=== PATIENT | female | born 1950 | race Caucasian/White ===

== ENCOUNTER → 2017-10-31 06:56 | Outpatient (CLI) | payer BC, SELFPAY ==
--- NOTE | 2017-10-31 06:46 | BI_ITS ---
MAMMOGRAPHY - BILATERAL SCREENING REASON FOR EXAM: Female, 66 years old. Routine annual screening examination. PERTINENT HISTORY: FAM HX MOTHER AGE 52, MAT AUNT AGE 60S LOST 17# BILAT REDUCTION 2010 TECHNIQUE: Digital bilateral breast ro (3D mammographic acquisition) in the CC and MLO projections. 2-D mediolateral oblique (MLO) and craniocaudad (CC) views of both breasts were obtained. CAD: Full Field Digital Mammography with Computer Added Detection was performed. COMPARISON: None. FINDINGS: Breast Composition: The breasts are heterogeneously dense, which may obscure small masses. There are no dominant masses or suspicious calcifications. No other significant abnormalities are identified. BI/SCREENING MAMM (CAD), BILAT IMPRESSION: Stable bilateral screening mammogram. Yearly follow-up mammogram recommended. (A) ASSESSMENT CATEGORY: BIRADS Category 2: Benign. A letter regarding these results will be sent to the patient by the facility within 30 days. Approximately 10% of breast cancers are not detected by mammography. A normal mammogram should not delay biopsy of a clinically suspicious abnormality. [id number] Electronically Signed: Holland Lu MD at 10:42 EDT Tel , Service support ,
--- NOTE | 2017-10-31 06:56 | DT_ITS ---
This patient was seen during an EMR downtime October 24, 2017 - October 31, 2017. This patient may have a combination of paper and electronic documentation or all paper documentation. All documentation is viewable within the e-chart portion of [facility] for each patient visit.
== END ==
PROVIDERS: Family Provider Internal Medicine; PCP Internal Medicine; Visit Provider Internal Medicine
DX: Z12.31 Encounter for screening mammogram for malignant neoplasm of breast (principal)
CPT/HCPCS: 77063; 77067

== ENCOUNTER → 2019-04-26 14:28 | Outpatient (CLI) | payer BC, SELFPAY ==
--- NOTE | 2019-04-26 14:32 | BI_ITS ---
MAMMOGRAPHY - BILATERAL SCREENING REASON FOR EXAM: Female, 68 years old. Routine annual screening examination. PERTINENT HISTORY: Mother with breast cancer. Aunt with breast cancer. History of prior bilateral breast reduction surgery. TECHNIQUE: Digital bilateral breast kenzie (3D mammographic acquisition) in the CC and MLO projections. 2-D mediolateral oblique (MLO) and craniocaudad (CC) views of both breasts were obtained. CAD: Full Field Digital Mammography with Computer Added Detection was performed. COMPARISON: Comparison is made with prior study dated October 31, 2017 and October 26, 2016. FINDINGS: Breast Composition: There are scattered areas of fibroglandular density. There are no dominant masses or suspicious calcifications. No other significant abnormalities are identified. There has been no significant change since the prior study. BI/SCREEN MAMM (CAD) W/KENZIE BILAT IMPRESSION: Stable bilateral screening mammogram. Yearly follow-up mammogram recommended. (A) ASSESSMENT CATEGORY: BIRADS Category 1: Negative. A letter regarding these results will be sent to the patient by the facility within 30 days. Approximately 10% of breast cancers are not detected by mammography. A normal mammogram should not delay biopsy of a clinically suspicious abnormality. [id number] Electronically Signed: Faraz Betancourt, at 15:53 EST , Service support ,
--- NOTE | 2019-04-26 14:34 | BD_ITS ---
STUDY: DUAL ENERGY X-RAY ABSORPTIOMETRY / DXA REASON FOR EXAM: Female, 68 years old. The patient is postmenopausal. Loss of height. TECHNIQUE: Bone Mineral Density (BMD) measurements of lumbar spine and bilateral hips were obtained. COMPARISON: Comparison is made with prior study dated October 26, 2016. FINDINGS: Lumbar Spine (L1-L4): g/cm2 (1.102) / T-score (-0.5) / Z-score (1.1) Findings are suggestive of normal bone density with a low fracture risk. Left Femur Total: g/cm2 (0.930) / T-score (0.6) / Z-score (0.7) Left Femoral Neck: g/cm2 (0.983) / T-score (0.4) / Z-score (1.2) Right Femur Total: g/cm2 (0.960) / T-score (-0.4) / Z-score (0.9) Right Femoral Neck: g/cm2 (1.092) / T-score (0.4) / Z-score (2.0) The T-Scores on the most recent prior examination were: Lumbar Spine (L1-L4): There has been worsening of bone density since the previous examination. Left Femur Total: which represents a worsening of 4.3%. Right Femur Total: which represents a worsening of 3.2%. BD/Dexa Bone Density Study IMPRESSION: The patient is considered normal as outlined below according to World [employer]fra[employer] Organization (WHO) criteria with a low fracture risk. There has been worsening of bone density since the previous examination. Reference Information: The T-score is the number of standard deviations above or below the standard which is normal for young adults at their peak bone mineral density. The World Health Organization (WHO) interprets the T-scores as follows: Above -1 Normal bone density Between -1 and -2.5 Osteopenia Equal to / or below -2.5 Osteoporosis As a practical clinical guideline, osteopenia may be graded as follows: Mild -1 through -1.5 Moderate -1.6 through -2.0 Severe -2.1 through -2.4 The Z-score is the number of standard deviations above or below age-matched controls. A Z-score of less than -1.5 would be considered abnormal. References: 1. NIH Osteoporosis and Related Bone Diseases http://www.osteo.org 2. International Society for Clinical Densitometry http://www.iscd.org 3. National Osteoporosis Foundation http://www.nof.org Electronically Signed: Faraz Betancourt, at 15:28 EST , Service support ,
== END ==
PROVIDERS: Family Provider Nurse Practitioner; PCP Nurse Practitioner; Referring Provider Internal Medicine; Visit Provider Internal Medicine
DX: Z78.0 Asymptomatic menopausal state (principal); Z12.31 Encounter for screening mammogram for malignant neoplasm of breast; Z80.3 Family history of malignant neoplasm of breast
CPT/HCPCS: 77063; 77067; 77080

== ENCOUNTER → 2019-06-20 14:24 | Outpatient (CLI) | payer SELFPAY ==
--- NOTE | 2019-06-20 14:32 | CT_ITS ---
STUDY: CARDIAC CALCIUM SCORING - CT CHEST REASON FOR EXAM: Female, 68 years old. HYPERCHOLESTEREMIA RADIATION DOSAGE (If Supplied By Facility): CTDIvol = ( 12.19 ) mGy, DLP = ( 195.04 ) mGycm TECHNIQUE: Axial non-enhanced images were acquired through the heart for the sole purpose of measuring coronary artery calcium. Individualized dose optimization techniques were used for this CT. COMPARISON: None. FINDINGS: Visualized surrounding anatomy: Normal. Please see the patient''s medical record for a personalized calcium score. CT/Limited Chest CT w/CCTA IMPRESSION: Please see the patient''s medical record for a personalized calcium score. Please go to: [email or web address] , for a description of the calculator. Electronically Signed: Humberto Camarena, at 17:13 EST Tel , Service support ,
[2019-06-20 14:38] VITALS: BP 179/81; PULSE 64; RESP 16; O2SAT 99; BMI 28.7
--- NOTE | 2019-06-20 15:18 | CCTA_ITS ---
Calcium Scoring Date of Study:: 06/20/19 Coronary Calcium Scoring: High-resolution Computed Tomographic imaging of the chest was performed on [06/20/2019], with particular attention paid to the coronary arteries. Images from the examination were analyzed for the presence and extent of coronary artery calcification , using coronary calcium quantification software. The patient tolerated the procedure well and there were no complications. The results of the coronary calcification analysis are provided below. - Findings Left Main (LM): 0 Left Anterior Descending (LAD): 28.9 Left Circumflex (LCX): 2.15 Right Coronary Artery (RCA): 0.77 Total Agatston Score: 31.82 Percentile Ranking: Between 50% and 75%. Calcium Scoring Interpretation: 0 No identifiable atherosclerotic plaque. Very low cardiovascular disease risk. <5% chance of presence coronary artery disease A Negative Examination 1-10 Minimal Plaque burden. Significant coronary artery disease very unlikely. 11-100 Mild plaque burden. Likely mild or minimal coronary atherosclerosis. 101-400 Moderate plaque burden Moderate non-obstructive coronary artery disease highly likely. Over 400 Extensive plaque burden. High likelihood of at least one significant coronary stenosis (>50% diameter) Conclusion: The total calcium score (31.8) is between the 50th and 75th percentile for women between the ages of 65 and 69. (Exact percentile calculated to be 51%; this means 50% of the population has a lower calcium score and 49% of the population is a higher calcium score than this patient.) A full evaluation of cardiac risk should include an assessment of all co nventional risk factors, and the scores and percentile rankings reported herein should be evaluated in this context.
== END ==
PROVIDERS: PCP Internal Medicine; Referring Provider Internal Medicine; Visit Provider Internal Medicine
DX: E78.00 Pure hypercholesterolemia, unspecified (principal)
CPT/HCPCS: 75571; 76380

== ENCOUNTER → 2020-05-28 11:41 | Outpatient (CLI) | payer MEDICARE, OTHER, SELFPAY ==
[2019-06-20 14:38] VITALS: BMI 28.7
--- NOTE | 2020-05-28 12:00 | RAD_ITS ---
HISTORY: LBP RADIATES INTO BILAT HIPS X3 MONTHS, PAIN DURING WALKING, NKI ADDITIONAL HISTORY: None provided. EXAMINATION/TECHNIQUE: XR Spine Lumbar 2 or 3 Views Number of images including paperwork: 3 COMPARISON: None FINDINGS: VERTEBRAE: No acute fracture. VERTEBRAL ALIGNMENT: No traumatic subluxation. DISKS AND JOINTS: Moderate to severe multilevel discogenic degenerative changes. Facet arthropathy. Degenerative changes of the sacroiliac joints. Right hip degenerative changes partially visible. SOFT TISSUES: Unremarkable paraspinous soft tissues. RAD/Lumbar Spine 2 or 3 Views IMPRESSION: No acute findings. Lumbar spondylosis. Severe degenerative changes right hip. at 0233 Reported and signed by: Lesly Buenrostro MD Electronically Signed: Lesly Buenrostro MD at 2:33 EST Tel , Service support ,
--- NOTE | 2020-05-28 12:00 | RAD_ITS ---
HISTORY: LBP RADIATES INTO BILAT HIPS X3 MONTHS, PAIN DURING WALKING, NKI ADDITIONAL HISTORY: None provided. EXAMINATION/TECHNIQUE: XR Hips Bilateral with Pelvis when performed; 2 Views Bilateral Number of images including paperwork: 5 COMPARISON: 10/26/2016 FINDINGS: BONES: No acute fracture. JOINTS: No subluxation. Joint space narrowing and osteophyte formation is noted involving the hips bilaterally with some subchondral sclerosis also noted on the right. Degenerative changes in the visible spine. SOFT TISSUES: No distinct foreign body. RAD/Hips B/L min 2 views w/ Pelvis IMPRESSION: No acute osseous abnormality. Severe right and moderate left hip degenerative changes. at 2357 Reported and signed by: Lesly Buenrostro MD Electronically Signed: Lesly Buenrostro MD at 23:57 EST Tel , Service support ,
== END ==
PROVIDERS: PCP Internal Medicine; Referring Provider Anesthesiology Pain Medicine; Visit Provider Anesthesiology Pain Medicine
DX: M54.9 Dorsalgia, unspecified (principal)
CPT/HCPCS: 72100; 73521

== ENCOUNTER → 2020-06-11 07:31 | Outpatient (CLI) | payer MEDICARE, OTHER, SELFPAY ==
[2019-06-20 14:38] VITALS: BMI 28.7
--- NOTE | 2020-06-11 07:35 | BI_ITS ---
MAMMOGRAPHY - BILATERAL SCREENING REASON FOR EXAM: Female, 69 years old. Routine annual screening examination. PERTINENT HISTORY: Sister with breast cancer. Mother with breast cancer. Aunt with breast cancer. History of prior bilateral breast reduction surgery. TECHNIQUE: Digital bilateral breast kenzie (3D mammographic acquisition) in the CC and MLO projections. 2-D mediolateral oblique (MLO) and craniocaudad (CC) views of both breasts were obtained. CAD: Full Field Digital Mammography with Computer Added Detection was performed. COMPARISON: Comparison is made with prior examination dated 04/26/2019 and 10/31/2017. FINDINGS: Breast Composition: There are scattered areas of fibroglandular density. There are no dominant masses or suspicious calcifications. Stable benign-appearing bilateral axillary lymph nodes. No other significant abnormalities are identified. There has been no significant change since the prior study. BI/SCRN MAMM (CAD)W/KENZIE BILAT IMPRESSION: Stable bilateral screening mammogram. Yearly follow-up mammogram recommended. (A) ASSESSMENT CATEGORY: BIRADS Category 2: Benign. A letter regarding these results will be sent to the patient by the facility within 30 days. Approximately 10% of breast cancers are not detected by mammography. A normal mammogram should not delay biopsy of a clinically suspicious abnormality. [id number] Electronically Signed: Faraz Betancourt MD at 8:41 EST , Service support ,
== END ==
PROVIDERS: PCP Internal Medicine; Referring Provider Internal Medicine; Visit Provider Internal Medicine
DX: Z12.31 Encounter for screening mammogram for malignant neoplasm of breast (principal)
CPT/HCPCS: 77063; 77067

== ENCOUNTER 2020-08-11 13:00 | Outpatient (RCR) | payer MEDICARE, OTHER, SELFPAY ==
[2019-06-20 14:38] VITALS: BMI 28.7
--- NOTE | 2020-06-18 10:58 | HP.PTEVAL ---
Patient's Visit Information JACKSON VICENTE is a 69 year old F referred to Physical Therapy by Dr. Neeraj Karimi MD with a diagnosis of Hip pain L and back pain. Date of Evaluation: 06/18/20 Physical Therapist: Jean Marie Meza, DPT, OCS, CSCS - Visit Plan Frequency: 2x /Week Duration: 4-6 Weeks Plan: 2x/week around vacation for month of June. Given back adn hip stretches today. Next session give core and hip strength abd and ext that can be done at home with pics for vacation then f/u after her vacation for gym program. - Subjective R hip pain starting 3 yrs ago. L hip hurts now also into quad. Had therapy at [facility] with [place]. Did not help. Did not have good experience. Was told she needed hip replaced. Tolerated it for a while but it is now worse for the last three months. Getting it at night and more often and into R LB. Went to pain management for injections. Injected 3 weeks ago in both hips and one week ago in back. Very much improved. Injections helped pain 95% but ROM is still poor. Was up at night with pain with lots of advil. Had R lateral hip paina nd L quad pain and locked sometimes. LB just ached much of time. Pain now is with sitting too long and it grabs a little bit or lying in bed tooo [place] and turning 3-4/10. pain was to 8=9/10 prior. Sleep OK through the night now. Has not tried vaccuming as it was paiful prior. Basic ADLs and house dutires are OK now. Walks 45 min at [employer] per day, wants to see if she can do weights. Might join via [employer]. Will be in [place] for most of Jun and wants HEP - Pain LB Pain Intensity (Out of 10): 0 Pain Intensity Range: 0, 4 - Objective Walks with BW pelvic rotation B to avoid hip extension but no antalgia. Trasnfers I without evidence of pain today. Steps reciprocal with one rail. Balance is good. LB AROM ext mod limited and slight pain. SB and flexion min limitations, no pain. reflexes 2/3 patella and achilles. Sensation WNL B LE. Hip aROM IR 0 on R and 5 on L, pain at end range. flexion 100 L and 110 R with pain. ext 2 degrees B, Abduction 15 B. PROM firm end feel. Strength hip ext adn abduction 3/5, flexion 4- and knee flexion and ext 4/5. ankle 4/5 B. Balalnce is good. + FADDIR on R hip, JERARDO is tight B but ot painful today. 45 degree B hip ext rotation. - Goals Goal 1:: Patient maintain 95% improvement in pain levels and 3/10 at worst over next month since injections. Goal Time Frame: 4-6 Weeks Goal 2:: Pt I appropriate HEP to minimize future problems(home adn gym) Goal Time Frame: 4-6 Weeks Goal 3:: Vaccuum without pain or problems Goal Time Frame: 4-6 Weeks Goal 4:: Sleep without waking at [facility] 4 weeks Goal Time Frame: 4-6 Weeks - Rehabilitation Potential Physical Therapy Diagnosis: Degenerative changes in hips causing motion limitation aand back pain. Rehabilitation Potential: Fair - Anticipated Interventions Patient/Client Instruction: Educate patient on: Condition, Plan of Care For the Purpose of:: To decrease pain, To increase tolerance to activity/condition/position, To improve gait and locomotor functions Therapeutic Exercise to Include: Strength training, Postural training, Flexibilty training, Gait and locomotor training, Passive ROM, Active ROM For the Purpose of:: To decrease pain, To increase ROM, To improve muscle performance and motor function, To increase tolerance to activity/condition/position Manual Therapy Techniques to Include: Mobilization, Soft tissue mobilization For the Purpose of:: To decrease pain, To increase ROM Thank you for the opportunity to evaluate your patient. For Medicare and Medicare HMO plans, please review the plan of care and approve it. It will need to be FAXED BACK to us at [phone] for Medicare purposes. For Medicare only, by signing this I certify the plan of care. Please let me know if there are questions or concerns regarding this plan of care. Physician Signature: Date:
--- NOTE | 2020-07-23 11:29 | HP.PTREVAL_ITS ---
Dr. Neeraj Karimi MD, It has been my pleasure to treat JACKSON VICENTE over the last 3 visits for Hip pain L and back pain. Please see the progress note below for an update on the physical therapy plan of care! Subjective: L hip and back did great. R hip acted up about two weeks ago and saw Sachi and gave some meds Mobic for it. Did some exercises while gone but not as much as she should. Can inject R hip again if needed but would like to wait 2 more months.Pain is almost 0 now on R side since starting mobic. Was 8/10 in R hip with walking. Objective/Function: L/S AROM fulla dn just some central tightness with ext. Hip rotation ext 50 L and 45 R. Much easier to put her socks on she says. Otherwise hip aROM WFL and seems more flexible. Walking without antalgia today. R GT area very tender but moves without pain. Pt does nto know what ex to do in gym but is motivated to workout there. appropriate to continue toward unmet goal with fair prognosis. Plan Plan: 3x/week for 2-4 weeks for. 1. Teach gym based CV, postural and LE sterngth program and give list as patient will join and continue as memeber. Ephasize NS psoition with exercisses and mobility. Goals Goal 1:: Patient maintain 95% improvement in pain levels and 3/10 at worst over next month since injections. Goal Time Frame: 4-6 Weeks Goal Progress: Goal Met Goal 2:: Pt I appropriate HEP to minimize future problems(home adn gym) Goal Time Frame: 4-6 Weeks Goal Progress: home, gym approp. Goal 3:: Vaccuum without pain or problems Goal Time Frame: 4-6 Weeks Goal Progress: Goal Met Goal 4:: Sleep without waking at [facility] 4 weeks Goal Time Frame: 4-6 Weeks Goal Progress: Goal Met Anticipated Interventions Patient/Client Instruction: Educate patient on: Condition, Plan of Care For the Purpose of:: To decrease pain, To increase tolerance to activity/condition/position, To improve gait and locomotor functions Therapeutic Exercise to Include: Strength training, Postural training, Flexibilty training, Gait and locomotor training, Passive ROM, Active ROM For the Purpose of:: To decrease pain, To increase ROM, To improve muscle performance and motor function, To increase tolerance to activity/condition/position Manual Therapy Techniques to Include: Mobilization, Soft tissue mobilization For the Purpose of:: To decrease pain, To increase ROM Please do not hesitate to contact me at [phone] by phone or Fax: if you have questions or concerns regarding this new plan of care! Sincerely, Jean Marie Meza, DPT, OCS, CSCS
--- NOTE | 2020-08-11 13:48 | HP.PTDCSUM ---
It has been my pleasure to treat JACKSON VICENTE referred by Dr. Neeraj Karimi MD, with the diagnosis of Hip pain L and back pain for a total of 9 visit(s). Discharge Date: 08/11/20 Please see the following information for a summary of their discharge status. Subjective: Doing really good. Not needing mobic. No pain in a while. Sleep is good. Not avoiding anything at home but sweeping can cause an ache. Has been walking for fitness. Feels like she can continue and has pics of ex. LB Pain Intensity (Out of 10): 0 R hip Pain Intensity (Out of 10): 0 % Improvement: 98 Objective/Function: Fucntional hip and LE ROM, strength on steps is good without antalgia B. Walks without gait deviations today. Goal 1:: Patient maintain 95% improvement in pain levels and 3/10 at worst over next month since injections. Goal Progress: Goal Met Goal 2:: Pt I appropriate HEP to minimize future problems(home adn gym) Goal Progress: Goal Met Goal 3:: Vaccuum without pain or problems Goal Progress: Goal Met Goal 4:: [facility] Goal Progress: Goal Met Plan: d/c to gym program 3xweek. Discharge Comments: Pt doing well overall and plans to contact doctor regarding possible cancellation of injection due to feeling so good. Will cotninue HEP 3x/week in gym. List given today. If there are questions or concerns regarding this patient's physical therapy, please feel free to call me at [phone]. Thank you for the referral of this patient. Sincerely, Jean Marie Meza, DPT, OCS, CSCS
== END 2020-08-11 19:00 | disposition home or self-care (01) ==
LOC: PT 13:00
PROVIDERS: PCP Internal Medicine; Referring Provider Anesthesiology Pain Medicine; Visit Provider Anesthesiology Pain Medicine
DX: M54.9 Dorsalgia, unspecified (principal); M25.552 Pain in left hip
CPT/HCPCS: 97110; 97162; 97164

== ENCOUNTER → 2021-01-27 08:46 | Outpatient (CLI) | payer MEDICARE, OTHER, SELFPAY ==
--- NOTE | 2021-01-27 08:49 | RAD_ITS ---
INDICATION: PREOP EXAMINATION/TECHNIQUE: X-RAY - XR Chest 2 Views COMPARISON: None. FINDINGS: The lungs are clear. The cardiomediastinal silhouette is unremarkable. No pleural effusion or pneumothorax. Degenerative changes of the thoracic spine. RAD/Chest PA and Lateral IMPRESSION: No acute radiographic abnormalities. Electronically Signed: Bebo Kemp MD at 23:29 EDT Tel , Service support ,
== END ==
PROVIDERS: PCP Internal Medicine; Referring Provider Physician Assistant Surgical; Visit Provider Physician Assistant Surgical
DX: Z01.810 Encounter for preprocedural cardiovascular examination (principal)
CPT/HCPCS: 71046

== ENCOUNTER 2021-03-25 10:30 | Outpatient (RCR) | payer MEDICARE, OTHER, SELFPAY ==
[2019-06-20 14:38] VITALS: BMI 28.7
--- NOTE | 2021-02-02 15:35 | HP.PTEVAL ---
Patient's Visit Information JACKSON VICENTE is a 70 year old F referred to Physical Therapy by Dr. Humberto Noe MD with a diagnosis of R THR S/P 01-29-21. Date of Evaluation: 02/02/21 Physical Therapist: BERENICE Roberts - Visit Plan Frequency: 3x /Week Duration: 6 Weeks Plan: 2-3X/ week for 6 weeks for L hip strength (anterior hip approach), gait training, functional training, with HEP. HEP: QS, heels slides, AP, Bridges, LAQ - Subjective Pt had her R TKR 01-29-21 and it was outpatient. She was not told a WB status but she is WBAT as she walks in today. She is taking pain meds. She sleeps well and she is in her bed. She has steps in her house but her bed is on one floor. She did 3 steps to get out of the house with a railing and did those well with a step 2 pattern. She struggles with pain getting in and out of bed and out of a car went well also. She does not have raised toilet seat and she is able to get up using the ledge of the sink. She has used the ice machine almost continously. She reports that her buttock was really painful before surgery and is painful now. She has been doing ankle pumps at home and trying to walk a little every hour. - Pain R hip pain Pain Intensity (Out of 10): 5 Pain Intensity Range: 7 Comment: with walking - Objective Gait: walks with a front wheeled walker with heel to toe gait pattern with decrease stance time on the R LE, flexed trunk. R knee flexion AROM 105 degrees. R hip flexion 60 degrees and R hip extension -20 degrees from neutral. TUG 24.25. Pt needs AA to do a SLR due to fatigue (hip flexion R (3+/5), Knee ext R 4/5, Knee flex R 4/5, hip ext 3-/5 (not full ROM), hip abd R 3-/5, Pt is not able to do a full ROM bridge. - Balance/Special Test Scores Lower Extremity Functional Score: 19 WOMAC Total Score: 59 WOMAC Percentatge: 38.5500 - Goals Goal 1:: I HEP Goal Time Frame: 4-6 Weeks Goal 2:: Be able to walk without a walker with no antalgic gait Goal Time Frame: 4-6 Weeks Goal 3:: Be able to go up and down the stairs recip with 1 hand rail without any signs of weakness or pain Goal Time Frame: 6-8 Weeks - Rehabilitation Potential Rehabilitation Potential: Good - Anticipated Interventions Patient/Client Instruction: Educate patient on: Condition, Plan of Care For the Purpose of:: To decrease pain, To decrease swelling/inflammation Therapeutic Exercise to Include: Strength training, Balance training, Postural training, Flexibilty training, Gait and locomotor training, Neuromotor development, Active ROM, Dynamic Lumbar Stabilization For the Purpose of:: To decrease pain, To increase ROM, To improve nutrient delivery to tissue, To improve muscle performance and motor function, To improve ability to perform ADL's, To increase tolerance to activity/condition/position, To improve performance and independence with ADL's, To decrease level of supervision to perform tasks, To improve gait and locomotor functions, To improve health of tissue Functional Training to Include: Gait training For the Purpose of:: To improve ability to perform ADL's, To improve gait and locomotor functions, To improve safety with gait Thank you for the opportunity to evaluate your patient. For Medicare and Medicare HMO plans, please review the plan of care and approve it. It will need to be FAXED BACK to us at [phone] for Medicare purposes. For Medicare only, by signing this I certify the plan of care. Please let me know if there are questions or concerns regarding this plan of care. Physician Signature: Date:
--- NOTE | 2021-03-25 15:09 | HP.PTREVAL_ITS ---
Dr. Humberto Noe MD, It has been my pleasure to treat JACKSON VICENTE over the last 20 visits for R THR S/P 01-29-21. Please see the progress note below for an update on the physical therapy plan of care! Subjective: Pt took 1 Alieve yesterday and has not taken one since. She feels that she has some Objective/Function: Gait: pt walks with normal gait pattern except for decrease B hip extension. Stairs; up and down recip with no hand rail Plan Plan: Pt to call in in 2 weeks Balance/Gait/Functional tests - Balance/Special Test Scores Lower Extremity Functional Score: 58 WOMAC Total Score: 59 WOMAC Percentage: 38.5500 Goals Goal 1:: I HEP Goal Time Frame: 4-6 Weeks Goal Progress: Goal Met Goal 2:: Be able to walk without a walker with no antalgic gait Goal Time Frame: 4-6 Weeks Goal Progress: Goal Met Goal 3:: Be able to go up and down the stairs recip with 1 hand rail without any signs of weakness or pain Goal Time Frame: 6-8 Weeks Goal Progress: Goal Met Anticipated Interventions Patient/Client Instruction: Educate patient on: Condition, Plan of Care For the Purpose of:: To decrease pain, To decrease swelling/inflammation Therapeutic Exercise to Include: Strength training, Balance training, Postural training, Flexibilty training, Gait and locomotor training, Neuromotor development, Active ROM, Dynamic Lumbar Stabilization For the Purpose of:: To decrease pain, To increase ROM, To improve nutrient de livery to tissue, To improve muscle performance and motor function, To improve ability to perform ADL's, To increase tolerance to activity/condition/position, To improve performance and independence with ADL's, To decrease level of supervision to perform tasks, To improve gait and locomotor functions, To improve health of tissue Functional Training to Include: Gait training For the Purpose of:: To improve ability to perform ADL's, To improve gait and locomotor functions, To improve safety with gait Please do not hesitate to contact me at [phone] by phone or if you have questions or concerns regarding this new plan of care! Sincerely, Corry Xiong, MPT
--- NOTE | 2021-07-01 13:30 | HP.PT.NRP ---
JACKSON VICENTE was seen in my office for initial evaluation on 02/02/21. The following Plan of Care was established for this patient: Initial Frequency: 3x /Week Initial Duration: 6 Weeks Patient/Client Instruction: Educate patient on: Condition, Plan of Care For the Purpose of:: To decrease pain, To decrease swelling/inflammation Therapeutic Exercise to Include: Strength training, Balance training, Postural training, Flexibilty training, Gait and locomotor training, Neuromotor development, Active ROM, Dynamic Lumbar Stabilization For the Purpose of:: To decrease pain, To increase ROM, To improve nutrient delivery to tissue, To improve muscle performance and motor function, To improve ability to perform ADL's, To increase tolerance to activity/condition/position, To improve performance and independence with ADL's, To decrease level of supervision to perform tasks, To improve gait and locomotor functions, To improve health of tissue Functional Training to Include: Gait training For the Purpose of:: To improve ability to perform ADL's, To improve gait and locomotor functions, To improve safety with gait This patient was last seen in our office 03/25/21. Pertinent comments regarding their Physical therapy will appear below: DC PT. Pt did not reschedule. Was having some family issues. At this point I will be discontinuing this patient from physical therapy. I would be happy to see this patient again in the future if found appropriate by the physician. Thank you! Corry Xiong, BERENICE Balance/Gait/Functional tests - Balance/Special Test Scores Lower Extremity Functional Score: 58 WOMAC Total Score: 59 WOMAC Percentage: 38.5500
== END 2021-03-25 19:00 | disposition home or self-care (01) ==
LOC: PT 10:30
PROVIDERS: PCP Internal Medicine; Referring Provider Specialist; Visit Provider Specialist
DX: Z47.1 Aftercare following joint replacement surgery (principal); Z96.641 Presence of right artificial hip joint
CPT/HCPCS: 97110; 97161

== ENCOUNTER → 2022-01-14 | Outpatient (CLI) | payer MEDICARE, OTHER, SELFPAY ==
--- NOTE | 2022-01-14 11:50 | BI_ITS ---
MAMMOGRAPHY - BILATERAL SCREENING REASON FOR EXAM: Female, 71 years old. Routine annual screening examination. PERTINENT HISTORY: Mother with breast cancer. Aunt with breast cancer. History of prior bilateral breast reduction surgery. TECHNIQUE: Digital bilateral breast kenzie (3D mammographic acquisition) in the CC and MLO projections. 2-D mediolateral oblique (MLO) and craniocaudad (CC) views of both breasts were obtained. CAD: Full Field Digital Mammography with Computer Added Detection was performed. COMPARISON: Comparison is made with prior study dated 06/11/2020 and 04/26/2019. FINDINGS: Breast Composition: There are scattered areas of fibroglandular density. There are no dominant masses or suspicious calcifications. Stable benign appearing bilateral axillary lymph nodes. No other significant abnormalities are identified. There has been no significant change since the prior study. BI/SCRN MAMM (CAD)W/KENZIE BILAT IMPRESSION: Stable bilateral screening mammogram. Yearly follow-up mammogram recommended. (A) ASSESSMENT CATEGORY: BIRADS Category 2: Benign. A letter regarding these results will be sent to the patient by the facility within 30 days. Approximately 10% of breast cancers are not detected by mammography. A normal mammogram should not delay biopsy of a clinically suspicious abnormality. [id number] Electronically Signed: Faraz Betancourt MD at 12:26 EDT ,
== END | disposition home or self-care (01) ==
LOC: OPBI 11:47
PROVIDERS: PCP Internal Medicine; Visit Provider Internal Medicine
DX: Z12.31 Encounter for screening mammogram for malignant neoplasm of breast (principal)
CPT/HCPCS: 77063; 77067

== ENCOUNTER 2022-03-01 08:00 | Outpatient (RCR) | payer MEDICARE, OTHER, SELFPAY ==
--- NOTE | 2022-02-15 08:49 | HP.PTEVAL_ITS ---
Patient's Visit Information JACKSON VICENTE is a 71 year old F referred to Physical Therapy by Dr. Humberto Noe MD with a diagnosis of L hip OA. Date of Evaluation: 02/15/22 Physical Therapist: Jean Marie Meza DPT, OCS, CSCS - Visit Plan Frequency: 3x /Week Duration: 4-6 Weeks Plan: 3/week for 2-4 weeks for. Teach gym and WB based hip stab strength adn work to I. Monitor HEP given today(clamshells, bridge with band, SLR abd for need for progression. Stretch R quad. - Subjective People say I limp at times, especially after walking for a while. Doctor thinks it is weakness. R hip was replaced one year ago and that is where the limp is. Has video of limp when walking with friends and fatigued with slight R trendelenberg. Has three friends that are on her all the time about limping when walking at [facility] or out shopping. Not having any pain. Sleep is OK. Activities are pretty normal, but sometimes feels weak if she walks a while. It doesn't feel strong. Walking with friends a couple miles at a time. No exercises other walking. - Objective Walks I and without antalgia into PT. Transfers safe and I. Steps are reciprocal. No unusual tenderness in hips. AROM R hip to 10 extension and 20 Ir and 60 ext rotation, L hip slightly more limited at 5 IR and 45 ex rotation, both to 105 flexion, both to 15 extension. strength 4 in extension B, R 3+ abduction, L 4-, 3+ ext rotatioan B, 4 in flexion. abduction R 12# and L 18#. flexibility in R quad is slightly liimited vs L but other flexibility symmetrical and WFL. - Balance/Special Test Scores Lower Extremity Functional Score: 69 - Goals Goal 1:: Walk with frineds at park with decreasing instance of trendelenberg gait. Goal Time Frame: 4-6 Weeks Goal 2:: strength in R hip symmetircal with L, 18# Goal Time Frame: 2-4 Weeks Goal 3:: I management of condition Goal Time Frame: 2-4 Weeks - Rehabilitation Potential Physical Therapy Diagnosis: Weakness in L hip casuing intermittent trenedlenberg gait. Rehabilitation Potential: Good - Anticipated Interventions Patient/Client Instruction: Educate patient on: Condition, Plan of Care For the Purpose of:: To decrease pain, To increase ROM, To improve muscle performance and motor function, To increase tolerance to activity/condition/position Therapeutic Exercise to Include: Strength training, Flexibilty training, Passive ROM, Active ROM For the Purpose of:: To improve nutrient delivery to tissue, To improve muscle performance and motor function, To increase tolerance to activity/condition/position, To improve gait and locomotor functions Thank you for the opportunity to evaluate your patient. For Medicare and Medicare HMO plans, please review the plan of care and approve it. It will need to be FAXED BACK to us at [phone] for Medicare purposes. For Medicare only, by signing this I certify the plan of care. Please let me know if there are questions or concerns regarding this plan of care. Physician Signature: Date :
--- NOTE | 2022-03-01 08:54 | HP.PTDCSUM ---
It has been my pleasure to treat JACKSON VICENTE referred by Dr. Humberto Noe MD, with the diagnosis of L hip OA for a total of 7 visit(s). Discharge Date: 03/01/22 Please see the following information for a summary of their discharge status. Subjective: Feeling stronger. More stable walking. Steps are stronger and easier. Was walking at [place] for 4 hours and was limping at the end. L hip Pain Intensity (Out of 10): 0 LB Pain Intensity (Out of 10): 0 % Improvement: 70 Objective/Function: 32# r hip abduction adn 36# L , much more symmetrical. walking without gait deviations today. Steps reciprocal without rail. Goal 1:: Walk with frineds at park with decreasing instance of trendelenberg gait. Goal Progress: Progressing Goal 2:: strength in R hip symmetircal with L, 18# Goal Progress: Progressing Goal 3:: I management of condition Goal Progress: Goal Met Plan: d/c to gym ex Discharge Comments: Will continue via HEP in gym 3x/week If there are questions or concerns regarding this patient's physical therapy, please feel free to call me at [phone]. Thank you for the referral of this patient. Sincerely, Jean Marie Meza, DPT, OCS, CSCS Balance/Gait/Functional tests - Balance/Special Test Scores Lower Extremity Functional Score: 70
== END 2022-03-01 08:58 | disposition home or self-care (01) ==
LOC: PT 08:00
PROVIDERS: PCP Internal Medicine; Referring Provider Specialist; Visit Provider Specialist
DX: M16.12 Unilateral primary osteoarthritis, left hip (principal); M70.62 Trochanteric bursitis, left hip; M70.61 Trochanteric bursitis, right hip
CPT/HCPCS: 97110; 97161; 97164

== ENCOUNTER → 2023-08-09 | Outpatient (CLI) | payer MEDICARE, OTHER, SELFPAY ==
--- NOTE | 2023-08-09 08:24 | BI_ITS ---
MAMMOGRAPHY - BILATERAL SCREENING REASON FOR EXAM: Female, 72 years old. Routine annual screening examination. PERTINENT HISTORY: Mother with breast cancer. Aunt with breast cancer. History of prior bilateral breast reduction surgery. TECHNIQUE: Digital bilateral breast kenzie (3D mammographic acquisition) in the CC and MLO projections. 2-D mediolateral oblique (MLO) and craniocaudad (CC) views of both breasts were obtained. CAD: Full Field Digital Mammography with Computer Added Detection was performed. COMPARISON: Comparison is made with prior study January 14, 2022 and June 11, 2020. FINDINGS: Breast Composition: There are scattered areas of fibroglandular density. There are no dominant masses or suspicious calcifications. Stable bilateral fat containing axillary lymph nodes. No other significant abnormalities are identified. There has been no significant change since the prior study. BI/SCRN MAMM (CAD)W/KENZIE BILAT IMPRESSION: Stable bilateral screening mammogram. Yearly follow-up mammogram recommended. (A) ASSESSMENT CATEGORY: BIRADS Category 2: Benign. A letter regarding these results will be sent to the patient by the facility within 30 days. Approximately 10% of breast cancers are not detected by mammography. A normal mammogram should not delay biopsy of a clinically suspicious abnormality. [id number] Electronically Signed: Faraz Betancourt MD at 9:37 EDT ,
== END | disposition home or self-care (01) ==
PROVIDERS: PCP Internal Medicine; Referring Provider Internal Medicine; Visit Provider Internal Medicine
DX: Z12.31 Encounter for screening mammogram for malignant neoplasm of breast (principal)
CPT/HCPCS: 77063; 77067

== ENCOUNTER → 2024-05-30 | Outpatient (CLI) | payer MEDICARE, OTHER, SELFPAY ==
--- NOTE | 2024-05-30 08:31 | BD_ITS ---
STUDY: DUAL ENERGY X-RAY ABSORPTIOMETRY / DXA REASON FOR EXAM: Female, 73 years old. 627.8Menopausal postmenopausal BONE DENSITY REASON FOR EXAM -- Postmenopausal status TECHNIQUE: Bone Mineral Density (BMD) measurements of lumbar spine and left hip were obtained. COMPARISON: Comparison is made with prior study dated April 26, 2019. FINDINGS: Lumbar Spine (L1-L4): g/cm2 (1.033) / T-score (-0.1) / Z-score (2.1) Findings are suggestive of normal bone density with a low fracture risk. Left Femur Total: g/cm2 (0.862) / T-score (-0.7) / Z-score (1.0) Left Femoral Neck: g/cm2 (0.840) / T-score (-0.1) / Z-score (1.9) The T-Scores on the most recent prior examination were: Lumbar Spine (L1-L4): There has been worsening of bone density since the previous examination. Left Femur Total: which represents a worsening of 0.5%. BD/Dexa Bone Density Study IMPRESSION: The patient is considered normal as outlined below according to World [employer] Organization (WHO) criteria with a low fracture risk. There has been worsening of bone density since the previous examination. Reference Information: The T-score is the number of standard deviations above or below the standard which is normal for young adults at their peak bone mineral density. The World Health Organization (WHO) interprets the T-scores as follows: Above -1 Normal bone density Between -1 and -2.5 Osteopenia Equal to / or below -2.5 Osteoporosis As a practical clinical guideline, osteopenia may be graded as follows: Mild -1 through -1.5 Moderate -1.6 through -2.0 Severe -2.1 through -2.4 The Z-score is the number of standard deviations above or below age-matched controls. A Z-score of less than -1.5 would be considered abnormal. References: 1. NIH Osteoporosis and Related Bone Diseases www osteo.org 2. International Society for Clinical Densitometry www iscd.org 3. National Osteoporosis Foundation www nof.org Electronically Signed: Faraz Betancourt MD at 9:41 EST ,
== END | disposition home or self-care (01) ==
LOC: OPBD 08:26
PROVIDERS: PCP Internal Medicine; Referring Provider Internal Medicine; Visit Provider Internal Medicine
DX: Z78.0 Asymptomatic menopausal state (principal)
CPT/HCPCS: 77080

== ENCOUNTER → 2024-08-16 | Outpatient (CLI) | payer MEDICARE, OTHER, SELFPAY ==
--- NOTE | 2024-08-16 07:43 | BI_ITS ---
EXAM: SCRN MAMM (CAD)W/KENZIE BILAT DATE: 08/16/2024 CLINICAL HISTORY: F, Age 73 y/o , BREAST CANCER SCREENING BREAST CANCER RISK ASSESSMENT: Does not appear to have been calculated. TECHNIQUE: Bilateral screening digital breast tomosynthesis with 2D and 3D images. Computer aided detection. COMPARISON: Prior exam(s) dated mammogram dated 08/09/2023. FINDINGS: TISSUE DENSITY: The breast tissue is composed of scattered area of fibroglandular density. Bilateral Breast Mammographic Findings: Stable nodular masslike densities are seen in both breasts. Benign round microcalcifications are seen in the left breast. No suspicious masses, suspicious clustered microcalcifications, architectural distortion or secondary sign of malignancy is identified in either breast. BI/SCRN MAMM (CAD)W/KENZIE BILAT IMPRESSION: Right Breast: BIRADS 2 BENIGN FINDING. Left Breast: BIRADS 2 BENIGN FINDING. OVERALL FINAL ASSESSMENT: BIRADS 2 BENIGN FINDING RECOMMENDATION: Routine annual follow-up in 1 Year A letter with findings and recommendations will be mailed to the patient. Reading Location: [id number]
== END | disposition home or self-care (01) ==
LOC: OPBI 07:42
PROVIDERS: PCP Internal Medicine; Referring Provider Internal Medicine; Visit Provider Internal Medicine
DX: Z12.31 Encounter for screening mammogram for malignant neoplasm of breast (principal)
CPT/HCPCS: 77063; 77067

== ENCOUNTER → 2024-09-03 | Outpatient (CLI) | payer MEDICARE, OTHER, SELFPAY ==
--- NOTE | 2024-09-03 08:33 | CT_ITS ---
PROCEDURE: LIMITED CHEST CT CARDIAC ONLY REASON FOR EXAM: HYPERCHOLESTEREMIA (E78.00) TECHNIQUE: Prone and supine chest CT without contrast. One or more dose reduction techniques were used (e.g., Automated exposure control, adjustment of the mA and/or kV according to patient size, use of iterative reconstruction technique). COMPARISON: None FINDINGS: Hardware: None Lymph nodes: No mediastinal hilar or axillary lymphadenopathy. Heart and Vasculature: Normal heart size. No pericardial effusion. Coronary Artery Calcifications: Present Lungs and Airways: The lungs are normally expanded and clear. No septal thickening nodules or abnormal pulmonary opacities. Pleura: Unremarkable Upper Abdomen: Status post cholecystectomy. Bones: Degenerative changes of the thoracic spine. CT/Limited Chest CT Cardiac Only IMPRESSION: Coronary artery calcification (CAC) is is present Reading Location: [place] [id number]
--- NOTE | 2024-09-03 16:39 | CA.SCORE ---
Calcium Scoring Date of Study:: 09/03/24 Indications Indications: cholesterolemia Coronary Calcium Scoring: High-resolution Computed Tomographic imaging of the chest was performed on [09/03/24 ], with particular attention paid to the coronary arteries. Images from the examination were analyzed for the presence and extent of coronary artery calcification , using coronary calcium quantification software. The patient tolerated the procedure well and there were no complications. The results of the coronary calcification analysis are provided below. Findings Coronary Artery Left Main (LM): 0 Left Anterior Descending (LAD): 52 Left Circumflex (LCX): 77.8 Right Coronary Artery (RCA): 0 Total Agatston Score: 129.8 Calcium Scoring Interpretation: Different methods to categorize the overall amount of coronary plaque. Overall amount CAC SIS Visual of coronary plaque P1 Mild -100 <2 1-2 vessels with mild amount of plaque P2 Moderate 101-300 3-4 1-2 vessels with moderate amount, 3 vessels with mild amount of plaque P3 Severe 301-999 5-7 3 vessels with moderate amount, 1 vessel with severe amount of plaque P4 Extensive >1000 >8 2-3 vessels with severe amount of plaque Calcium Score: Moderate: 1-2 vessels w/moderate amt, 3 vessels w/mild amt of plaque Conclusion: Mild to moderate two-vessel atherosclerotic plaquing noted
== END | disposition home or self-care (01) ==
LOC: CT 08:31
PROVIDERS: PCP Internal Medicine; Referring Provider Internal Medicine; Visit Provider Internal Medicine
DX: E78.00 Pure hypercholesterolemia, unspecified (principal)
CPT/HCPCS: 75571; 76380

== ENCOUNTER → 2024-09-17 | Outpatient (CLI) | payer MEDICARE, OTHER, SELFPAY ==
--- NOTE | 2024-09-17 09:00 | EKG12_ITS ---
Test Reason : PRE OP Blood Pressure : */* mmHG Vent. Rate : 75 BPM Atrial Rate : 75 BPM P-R Int : 208 ms QRS Dur : 86 ms QT Int : 392 ms P-R-T Axes : 27 -39 32 degrees QTcB Int : 437 ms Normal sinus rhythm Left axis deviation Minimal voltage criteria for LVH, may be normal variant Possible Anterior infarct , age undetermined Abnormal ECG Confirmed by JENNIFER HOOK, KEELY ([id number]), editor city ALEXANDER SIBLEY ([id number]) on 09/19/2024 11:43:34 AM Referred By: Humberto Noe Confirmed By: KEELY RODRIGUEZ MD
[2024-09-17 09:45] LABS: Absolute Neutrophil Count 2.3 X10^3/uL (2.0-7.7); Basophil# 0.05 X10^3/uL; Basophil% 1.1 % (0-1); Eosinophil# 0.15 X10^3/uL; Eosinophils% 3.4 % (0-5); Hematocrit 41.4 % (37-47); Hemoglobin 14.1 g/dL (12.0-15.0); Lymphocyte % 29.9 % (19-41); Mean Corp Hgb Conc 34.1 g/dL (32-36); Mean Corpuscular Hgb 31.4 pg (27.0-32.0); Mean Corpuscular Volume 92.2 fL (81-99); Mean Platelet Vol. 11.2 fl (6.2-12.0); Monocyte# 0.52 X10^3/uL; NRBC Flagged by Analyzer 0 % (0-5); Neutrophil % 52.9 % (47-70); Platelet Count 203 K/mm3 (150-450); RBC Distribution Width CV 12.1 % (11.6-14.6); RBC Distribution Width SD 41.2 fl (35.1-43.9); Red Blood Count 4.49 M/mm3 (4.2-5.4); White Blood Count 4.4 K/mm3 (4.4-11.0)
[2024-09-17 10:55] LABS: Albumin, Serum 4.3 g/dL (3.4-4.8); Anion Gap 13 (5-15); BUN 16 mg/dL (4-19); Calcium,Total 9.5 mg/dL (7.6-11.0); Carbon Dioxide 20.7 mmol/L (21.0-32.0); Chloride 107 mmol/L (98-108); Creatinine, Serum 0.65 mg/dL (0.70-1.20); EST Glomerular Filtration Rate 94 (>60); Glucose 101 mg/dL (70-99); Potassium 4.6 mmol/L (3.3-5.1); Sodium Level 140 mmol/L (133-145)
== END | disposition home or self-care (01) ==
LOC: PSN 08:57
PROVIDERS: PCP Internal Medicine; Referring Provider Specialist; Visit Provider Specialist
DX: Z01.818 Encounter for other preprocedural examination (principal); M16.12 Unilateral primary osteoarthritis, left hip
CPT/HCPCS: 36415; 80048; 82040; 85025; 93005

== ENCOUNTER → 2025-01-17 | Outpatient (CLI) | payer MEDICARE, OTHER, SELFPAY ==
[2025-01-17 12:50] LABS: Hematocrit 40.4 % (37-47); Hemoglobin 13.6 g/dL (12.0-15.0); Immature Granulocytes Count 0.010 X10^3/uL (0.0-0.0); Mean Corp Hgb Conc 33.7 g/dL (32-36); Mean Corpuscular Volume 91.4 fL (81-99); Mean Platelet Vol. 11.6 fl (6.2-12.0); NRBC Flagged by Analyzer 0 % (0-5); Platelet Count 235 K/mm3 (150-450); RBC Distribution Width CV 12.1 % (11.6-14.6); RBC Distribution Width SD 40.6 fl (35.1-43.9); Red Blood Count 4.42 M/mm3 (4.2-5.4); White Blood Count 4.0 K/mm3 (4.4-11.0)
[2025-01-17 13:21] LABS: AST(SGOT) 24 U/L (<=31); Alanine Aminotransfer ALT/SGPT 20 U/L (<=34); Albumin, Serum 4.4 g/dL (3.4-4.8); Alkaline Phosphatase 74 U/L (35-104); Anion Gap 14 (5-15); BUN 17 mg/dL (4-19); BUN/Creat Ratio 26.2 RATIO (10-20); Calcium,Total 9.9 mg/dL (7.6-11.0); Carbon Dioxide 21.4 mmol/L (21.0-32.0); Chloride 103 mmol/L (98-108); Globulin 2.5 g/dL (2.2-4.2); Glucose 96 mg/dL (70-99); Potassium 4.4 mmol/L (3.3-5.1)
[2025-01-19 21:08] LABS: CHOLESTEROL TOTAL 329 mg/dL (100-199); HDL-C 55 mg/dL (>39); HDL-P TOTAL 40.2 umol/L (>=30.5); INSULIN RESISTANCE SCORE 76 (<=45); LDL SIZE 20.4 nm (>20.5); LDL-C (NIH CALC) 194 mg/dL (0-99); LDL-P 2712 nmol/L (<1000); SMALL LDL-P 1398 nmol/L (<=527)
== END | disposition home or self-care (01) ==
PROVIDERS: PCP Internal Medicine; Referring Provider Internal Medicine; Visit Provider Internal Medicine
DX: Z51.81 Encounter for therapeutic drug level monitoring (principal); R79.89 Other specified abnormal findings of blood chemistry; E78.00 Pure hypercholesterolemia, unspecified
CPT/HCPCS: 36415; 80053; 80061; 83695; 83704; 84443; 85025

== ENCOUNTER → 2025-03-18 | Outpatient (CLI) | payer MEDICARE, OTHER, SELFPAY ==
[2025-03-18 12:25] LABS: Hematocrit 42.0 % (37-47); Hemoglobin 14.0 g/dL (12.0-15.0); Immature Granulocytes Count 0.040 X10^3/uL (0.0-0.0); Mean Corp Hgb Conc 33.3 g/dL (32-36); Mean Corpuscular Volume 91.1 fL (81-99); Mean Platelet Vol. 11.1 fl (6.2-12.0); NRBC Flagged by Analyzer 0 % (0-5); Platelet Count 242 K/mm3 (150-450); RBC Distribution Width CV 12.1 % (11.6-14.6); RBC Distribution Width SD 40.2 fl (35.1-43.9); Red Blood Count 4.61 M/mm3 (4.2-5.4); White Blood Count 7.0 K/mm3 (4.4-11.0)
[2025-03-18 13:00] LABS: AST(SGOT) 18 U/L (<=31); Alanine Aminotransfer ALT/SGPT 16 U/L (<=34); Albumin, Serum 4.2 g/dL (3.4-4.8); Alkaline Phosphatase 58 U/L (35-104); Bilirubin, Direct 0.17 mg/dL (0.00-0.30); Globulin 2.4 g/dL (2.2-4.2)
== END | disposition home or self-care (01) ==
LOC: MTLAB 09:39
PROVIDERS: PCP Internal Medicine; Referring Provider Internal Medicine; Visit Provider Internal Medicine
DX: E03.9 Hypothyroidism, unspecified (principal); E78.00 Pure hypercholesterolemia, unspecified
CPT/HCPCS: 36415; 80076; 84443; 85025

== ENCOUNTER 2025-04-25 08:30 | Outpatient (RCR) | payer MEDICARE, OTHER, SELFPAY ==
--- NOTE | 2024-10-17 09:55 | HP.PTEVAL ---
Patient's Visit Information Visit Information Visit Information: JACKSON VICENTE is a 73 year old F referred to Physical Therapy by Macho French PA-C with a diagnosis of L RAFITA DOS: 10/11/24 anterior approach. Date of Evaluation: 10/11/24 Physical Therapist: Meir Alberto DPT Visit Plan Frequency: 2-3x /Week Duration: 6 Weeks Plan: Anterior approach 1) ROM progression. HS stretching 2) functional mobility, gait progression 3) functional strengthening. ice as needed for pain control. Subjective Subjective: Pt. is here today for her initial evaluation with diagnosis of L RAFITA anterior approach. DOS: 10/11/24. Pt. arrives with use of FWW. Pt. reports overall doing well. Not much pain. Pt. is pleased thus far. Pt. is sleeping well. Pt. denies N/T. Pt. has not done much exercise yet, but has been trying to walk and do her ankle pumps. Pt. is icing frequently. She is getting in and out of bed with a little. Pt. denies chest pains, no HAs, no calf pain. Pt. is hopeful to get back to all activities without limitations. Pain L hip: Pain Intensity (Out of 10): 1 Objective Objective: POSTURE: Pt. has good posture in stance. Slight flexion and slight wt. shift to R side. PALPATION: Pt. has normal sensation. Pt. has bandage in place. Pt. is to remove in a few days. NEURO: normal throughout BLEs. ROM: L hip: PROM: flexion 75deg, abd 30deg, IR and ER not tested today. Ext not tested. MMT: RLE: ankle 5/5 throughout; knee: ext 21#,flexion 17#; hip: flexion 21#, LLE: ankle 5/5 throughout; knee: ext 15#, flexion 13#; hip: 0# GAIT: Pt. ambulates well with FWW, good WBing. TU.9sec with FWW. 30sec sit to stand 8 with use of Ues. STAIRS: step to pattern with 2 HR. Balance/Special Test Scores WOMAC Total Score: 48 WOMAC Percentatge: 50.0000 Goals Goal 1:: LTG: pt. to be I with HEP. Goal Time Frame: 4-6 Weeks Goal 2:: STG: pt. to sleep throughout the night without increase in symptoms. Goal Time Frame: 2-4 Weeks Goal 3:: LTG: Pt. to have normal gait pattern without use of Ad. Goal Time Frame: 6-8 Weeks Goal 4:: LTG: pt. to complete TUG with time less than 10seconds. Goal Time Frame: 6-8 Weeks Goal 5:: LTG: pt. to have symmetrical strength of BLEs. Goal Time Frame: 6-8 Weeks Goal 6:: LTG: pt. to negotiate 1 flight of stairs with 1 HR with reciprocal pattern. Goal Time Frame: 6-8 Weeks Rehabilitation Potential Physical Therapy Diagnosis: Pt. has signs and symptoms consistent with L RAFITA DOS: 10/11/24 anterior approach. Pt. has hypomobility, weakness, difficulty walking. Pt would benefit from PT to address the above limitations. Rehabilitation Potential: Excellent Anticipated Interventions Patient/Client Instruction: Educate patient on: Condition, Plan of Care, Risk Factors and Benefits of Fitness Program For the Purpose of:: To improve decision making, To facilitate caregiver knowledge, To improve self management, To prevent re-injury, To improve ability to perform tasks related to life management and To improve tolerance to ADL's Therapeutic Exercise to Include: Strength training, Power training, Endurance training, Balance training, Body mechanics, Postural training, Flexibilty training, Gait and locomotor training, Passive ROM, Active ROM and Dynamic Lumbar Stabilization For the Purpose of:: To decrease pain, To decrease swelling/inflammation, To increase ROM, To improve nutrient delivery to tissue, To increase oxygenation perfusion, To improve muscle performance and motor function, To improve ability to perform ADL's, To improve ability of physical actions for home/community/work/leisure, To improve gait and locomotor functions and To improve health of tissue Manual Therapy Techniques to Include: Passive ROM and Soft tissue mobilization For the Purpose of:: To decrease pain, To decrease swelling/inflammation, To improve health of tissue, To decrease soft tissue restriction and To increase flexibility/ROM Cryotherapy (ice pack, ice massage): Yes For the Purpose of:: To decrease pain, To decrease swelling/inflammation and To increase ROM Text: Thank you for the opportunity to evaluate your patient. For Medicare and Medicare HMO plans, please review the plan of care and approve it. It will need to be FAXED BACK to us at [phone] for Medicare purposes. For Medicare only, by signing this I certify the plan of care. Please let me know if there are questions or concerns regarding this plan of care. Physician Signature: Date:
--- NOTE | 2024-11-09 09:33 | HP.PTREVAL ---
Re-Evaluation Intro: Macho French PA-C, It has been my pleasure to treat JACKSON VICENTE over the last 8 visits for L RAFITA DOS: 10/11/24 anterior approach. Please see the progress note below for an update on the physical therapy plan of care! Subjective Subjective: Pt. reports having 2-3/10 pain today. Last night was good, but started to ache by the morning. Pt. to see physician in ~6 weeks. Objective Objective/Function: ROM: L hip: flexion 120deg, abd 50deg, ER 50deg, IR 20deg. MMT: L hip: flexion 20.6#, abd 17.0# R hip: flex 21.1#, abd 16.8# TU.8 no AD 6 MWT: 1175 no AD STAIRS: normal without use of HR with reciprocal pattern. Pt. is to complete all of her gym exercises and progressive walking program on her own at this point in time. Plan Plan Plan: Pt. to trial on her own for 2-3 weeks. Pt. is overall doing great. If she has any issues she can come back. Balance/Gait/Functional tests Balance/Special Test Scores TUG Test Time Seconds: 8.8 Tug Test: <10 sec.=free mobile 30 Second Chair Rise Test Seconds: 13 6 Minute Walk Test: 1175 without AD WOMAC Total Score: 48 WOMAC Percentage: 50.0000 Goals Goals Goal 1:: LTG: pt. to be I with HEP. Goal Time Frame: 4-6 Weeks Goal Progress: Goal Met Goal 2:: STG: pt. to sleep throughout the night without increase in symptoms. Goal Time Frame: 2-4 Weeks Goal Progress: Goal Met Goal 3:: LTG: Pt. to have normal gait pattern without use of Ad. Goal Time Frame: 6-8 Weeks Goal Progress: Goal Met Goal 4:: LTG: pt. to complete TUG with time less than 10seconds. Goal Time Frame: 6-8 Weeks Goal Progress: Goal Met Goal 5:: LTG: pt. to have symmetrical strength of BLEs. Goal Time Frame: 6-8 Weeks Goal Progress: Progressing Goal 6:: LTG: pt. to negotiate 1 flight of stairs with 1 HR with reciprocal pattern. Goal Time Frame: 6-8 Weeks Goal Progress: Goal Met Anticipated Interventions Anticipated Interventions Patient/Client Instruction: Educate patient on: Condition, Plan of Care, Risk Factors and Benefits of Fitness Program For the Purpose of:: To improve decision making, To facilitate caregiver knowledge, To improve self management, To prevent re-injury, To improve ability to perform tasks related to life management and To improve tolerance to ADL's Therapeutic Exercise to Include: Strength training, Power training, Endurance training, Balance training, Body mechanics, Postural training, Flexibilty training, Gait and locomotor training, Passive ROM, Active ROM and Dynamic Lumbar Stabilization For the Purpose of:: To decrease pain, To decrease swelling/inflammation, To increase ROM, To improve nutrient delivery to tissue, To increase oxygenation perfusion, To improve muscle performance and motor function, To improve ability to perform ADL's, To improve ability of physical actions for home/community/work/leisure, To improve gait and locomotor functions and To improve health of tissue Manual Therapy Techniques to Include: Passive ROM and Soft tissue mobilization For the Purpose of:: To decrease pain, To decrease swelling/inflammation, To improve health of tissue, To decrease soft tissue restriction and To increase flexibility/ROM Cryotherapy (ice pack, ice massage): Yes For the Purpose of:: To decrease pain, To decrease swelling/inflammation and To increase ROM Re-Evaluation Ending Re-evaluation ending: Please do not hesitate to contact me at [phone] by phone or if you have questions or concerns regarding this new plan of care! Sincerely, Meir Alberto DPT
--- NOTE | 2024-12-04 14:06 | HP.PTREVAL_ITS ---
Re-Evaluation Intro: Macho French PA-C, It has been my pleasure to treat JACKSON VICENTE over the last 9 visits for L RAFITA DOS: 10/11/24 anterior approach. Please see the progress note below for an update on the physical therapy plan of care! Subjective Subjective: Pt. reports falling down a step ~2 weeks ago and landed on her L knee. Pt. reports having increased L knee pain. Pt. reports having some mild L hip soreness. Pt. reports being in a lot of pain after the fall, but is slowly progressing. She feels like she is now weak from not being able to do much over th past few weeks. L knee pain 0/10 at rest, pain becomes achy after walking/standing 30+ min. Objective Objective/Function: ROM: L hip normal without increase in symptoms. L knee 0-0-126deg tightness noted R knee 0-0-129deg no issues Normal HS length bilat L LE: hip: flex 15.5#, abd 11.9#; knee: ext 28.0#, flex 23.3# RLE: hip: flex 16.7#, abd 15.2#; knee: ext 33.4#, flex 31.5# GAIT: pt. has a slight antalgic pattern during L stance phase. Pt. reports some L knee pain and anterior/lateral hip pain. STAIRS: pt. is able to complete with reciprocal pattern with 2 HR. Pt. has increased tenderness in her L knee with both ascending and descending. Pt. is pretty tender along her anterior thigh and lateral femur. Pt. is a little bit weaker compared to last re check. I would like her to work on strengthening of L hip and knee musculature to increase stability and get back to all previous levels of mobility. Plan Plan Plan: Pt. fell a few weeks ago. 1) Work on foam rolling to L quad and lateral thigh. 2) progressive walking 3) LLE (hip/knee musculature) strengthening. Balance/Gait/Functional tests Balance/Special Test Scores TUG Test Time Seconds: 9.6 Tug Test: <10 sec.=free mobile 30 Second Chair Rise Test Seconds: 12 6 Minute Walk Test: 1175 without AD WOMAC Total Score: 48 WOMAC Percentage: 50.0000 Goals Goals Goal 1:: LTG: pt. to be I with HEP. Goal Time Frame: 4-6 Weeks Goal Progress: Progressing Goal 2:: STG: pt. to sleep throughout the night without increase in symptoms. Goal Time Frame: 2-4 Weeks Goal Progress: Goal Met Goal 3:: LTG: Pt. to have normal gait pattern without use of Ad. Goal Time Frame: 6-8 Weeks Goal Progress: Progressing Goal 4:: LTG: pt. to complete TUG with time less than 10seconds. Goal Time Frame: 6-8 Weeks Goal Progress: Goal Met Goal 5:: LTG: pt. to have symmetrical strength of BLEs. Goal Time Frame: 6-8 Weeks Goal Progress: Progressing Goal 6:: LTG: pt. to negotiate 1 flight of stairs with 1 HR with reciprocal pattern. Goal Time Frame: 6-8 Weeks Goal Progress: Progressing Anticipated Interventions Anticipated Interventions Patient/Client Instruction: Educate patient on: Condition, Plan of Care, Risk Factors and Benefits of Fitness Program For the Purpose of:: To improve decision making, To facilitate caregiver knowledge, To improve self management, To prevent re-injury, To improve ability to perform tasks related to life management and To improve tolerance to ADL's Therapeutic Exercise to Include: Strength training, Power training, Endurance training, Balance training, Body mechanics, Postural training, Flexibilty training, Gait and locomotor training, Passive ROM, Active ROM and Dynamic Lumbar Stabilization For the Purpose of:: To decrease pain, To decrease swelling/inflammation, To increase ROM, To improve nutrient delivery to tissue, To increase oxygenation perfusion, To improve muscle performance and motor function, To improve ability to perform ADL's, To improve ability of physical actions for home/community/work/leisure, To improve gait and locomotor functions and To improve health of tissue Manual Therapy Techniques to Include: Passive ROM and Soft tissue mobilization For the Purpose of:: To decrease pain, To decrease swelling/inflammation, To improve health of tissue, To decrease soft tissue restriction and To increase flexibility/ROM Cryotherapy (ice pack, ice massage): Yes For the Purpose of:: To decrease pain, To decrease swelling/inflammation and To increase ROM Re-Evaluation Ending Re-evaluation ending: Please do not hesitate to contact me at [phone] by phone or Fax: if you have questions or concerns regarding this new plan of care! Sincerely, Meir lAberto DPT
== END 2025-04-25 19:00 | disposition home or self-care (01) ==
LOC: PT 08:30
PROVIDERS: PCP Internal Medicine; Referring Provider Physician Assistant Surgical; Visit Provider Physician Assistant Surgical
DX: Z96.642 Presence of left artificial hip joint (principal); Z47.1 Aftercare following joint replacement surgery
CPT/HCPCS: 97110; 97161; 97530